=== PATIENT | female | born 1930 | race Caucasian/White ===

== ENCOUNTER → 2016-07-31 | Outpatient (CLI) | payer BC ==
[~2016-07-31] MED LIST: ACET-1256 PO; ASPCH81 PO; ATOR10TA88 PO; CHOL20007 PO; DVN/160 PO; FAMO20TA11 PO; IPRA0.032 NAE; MAGN400T6 PO; MCRK20 PO; PANT1TAB48 PO; SERT1TAB88 PO
[2016-07-31 14:34] LABS: BASO % 0.2 %; BASO ABS # 0.01 K/uL (0-0.2); COMPLETE YES; EOS % 1.4 %; IG% 0.2 %; LYMPH % 31.5 %; LYMPH ABS # 2.06 K/uL (1.2-3.4); MEAN CELL VOLUME 87.1 fL (80-100); MEAN CORPUSCULAR HGB CONC 33.3 g/dl (32-36); MEAN PLATELET VOLUME 10.3 fL (7.4-10.4); MONO % 8.7 %; PLATELET COUNT 216 K/uL (130-400); RED BLOOD COUNT 4.59 M/uL (4.2-5.4); WHITE BLOOD COUNT 6.54 K/uL (4.8-10.8)
[2016-07-31 15:09] LABS: BLOOD UREA NITROGEN 16 mg/dl (7-18); BUN/CREATININE RATIO 29.8 (10-20); CALCIUM 9.1 mg/dl (8.5-10.1); CARBON DIOXIDE 28 mmol/L (21-32); CHLORIDE 105 mmol/L (98-107); CREATININE 0.52 mg/dl (0.60-1.20); GLUCOSE 85 mg/dl (70-99); POTASSIUM 4.1 mmol/L (3.5-5.1); SODIUM 142 mmol/L (136-145)
== END | disposition home or self-care (01) ==
LOC: C.LAB 13:24
PROVIDERS: ATTEND Internal Medicine Geriatric Medicine
DX: E53.8 Deficiency of other specified B group vitamins (principal); M81.0 Age-related osteoporosis without current pathological fracture; M19.90 Unspecified osteoarthritis, unspecified site; E78.5 Hyperlipidemia, unspecified; I10 Essential (primary) hypertension; E55.9 Vitamin D deficiency, unspecified; R70.0 Elevated erythrocyte sedimentation rate

== ENCOUNTER → 2016-09-26 | Outpatient (CLI) | payer BC ==
--- NOTE | 2016-09-26 15:04 | DIAGNOSTIC IMAGING REPORT ---
RIGHT HAND 3 VIEWS HISTORY: M25.549 Pain, hand joint pain, swelling 3rd MCP [id number] Right COMPARISON: None. FINDINGS: There is no fracture or dislocation. The bones are osteopenic. 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 Mild osteoarthritis at the DIP and PIP joints. Soft tissue swelling at the second and third MCP joints and fingers. No bony erosions. No radiopaque foreign bodies. IMPRESSION: Soft tissue swelling. No fracture or dislocation within the right hand. Electronically signed by: Lorenzo Hickman M.D. 09/26/2016 3:03 PM Dictated Date/Time: 09/26/2016 3:01 PM
== END | disposition home or self-care (01) ==
LOC: C.RADBC 13:43
PROVIDERS: ATTEND Internal Medicine Geriatric Medicine
DX: M25.541 Pain in joints of right hand (principal); M79.89 Other specified soft tissue disorders

== ENCOUNTER → 2017-01-10 | Outpatient (CLI) | payer BC ==
[~2017-01-10] MED LIST changes: +ATOR10TA82 PO; -ATOR10TA88 PO; -FAMO20TA11 PO
== END ==
LOC: C.RDSM 15:57
PROVIDERS: ATTEND Physical Medicine & Rehabilitation Sports Medicine
DX: M25.551 Pain in right hip (principal); M25.561 Pain in right knee

== ENCOUNTER → 2017-01-26 | Outpatient (CLI) | payer BC ==
[~2017-01-26] MED LIST changes: -ATOR10TA82 PO; +ATOR10TA88 PO
--- NOTE | 2017-01-26 12:24 | MAMMOGRAPHY REPORT ---
BILATERAL DIGITAL SCREENING MAMMOGRAM WITH CAD: 01/26/2017 CLINICAL HISTORY: Routine screening. Patient has no complaints. TECHNIQUE: Current study was also evaluated with a Computer Aided Detection (CAD) system. Bilateral CC and MLO views were obtained. COMPARISON: Comparison is made to exams dated: 01/25/2016 mammogram, 01/21/2015 mammogram, 01/20/2014 mamm ogram, 01/16/2012 mammogram, 01/13/2011 mammogram, and 01/12/2010 mammogram - [facility] er. BREAST COMPOSITION: There are scattered areas of fibroglandular density in both breasts. FINDINGS: No suspicious masses, calcifications, or areas of architectural distortion are noted in ei ther breast. There has been no significant interval change compared to prior exams. IMPRESSION: ACR BI-RADS CATEGORY 1: NEGATIVE There is no mammographic evidence of malignancy. A 1 year screening mammogram is recommended. The pa tient will receive written notification of the results. Approximately 10% of breast cancers are not detected with mammography. A negative mammographic report should not delay biopsy if a clinically suggestive mass is present. Muriel Paul M.D. /:01/26/2017 12:03:06 Ager Operator: Olga Lidia HERNANDEZ)(Rickey), [facility] letter sent: Normal 1/2 BI-RADS Code: ACR BI-RADS Category 1: Negative
== END | disposition home or self-care (01) ==
LOC: C.MAMM 09:59
PROVIDERS: ATTEND Internal Medicine Geriatric Medicine
DX: Z12.31 Encounter for screening mammogram for malignant neoplasm of breast (principal)

== ENCOUNTER → 2017-02-08 | Outpatient (CLI) | payer BC | END | disposition home or self-care (01) | LOC: C.MAMM 13:37 | PROVIDERS: ATTEND Physical Medicine & Rehabilitation Sports Medicine | DX: M81.0 Age-related osteoporosis without current pathological fracture (principal) ==

== ENCOUNTER → 2017-06-01 | Outpatient (CLI) | payer BC ==
[~2017-06-01] MED LIST changes: +ATOR10TA82 PO; -ATOR10TA88 PO
[2017-06-01 11:48] LABS: BASO % 0.1 %; BASO ABS # 0.01 K/uL (0-0.2); COMPLETE YES; EOS % 1.6 %; HEMATOCRIT 40.9 % (37-47); IG% 0.4 %; LYMPH % 21.8 %; LYMPH ABS # 1.75 K/uL (1.2-3.4); MEAN CELL VOLUME 88.9 fL (80-100); MEAN CORPUSCULAR HEMOGLOBIN 29.3 pg (25-34); MEAN PLATELET VOLUME 9.8 fL (7.4-10.4); MONO % 6.6 %; NEUT % 69.5 %; PLATELET COUNT 202 K/uL (130-400); WHITE BLOOD COUNT 8.03 K/uL (4.8-10.8)
[2017-06-01 12:14] LABS: ALT/SGPT 14 U/L (12-78); BLOOD UREA NITROGEN 18 mg/dl (7-18); BUN/CREATININE RATIO 29.2 (10-20); CALCIUM 9.2 mg/dl (8.5-10.1); CARBON DIOXIDE 28 mmol/L (21-32); CHLORIDE 105 mmol/L (98-107); CHOLESTEROL 182 mg/dl (0-200); CREATININE 0.62 mg/dl (0.60-1.20); GLUCOSE 108 mg/dl (70-99); POTASSIUM 3.7 mmol/L (3.5-5.1); SODIUM 139 mmol/L (136-145); TRIGLYCERIDES 186 mg/dl (0-150); VERY LOW DENSITY LIPOPROT CALC 37 mg/dl
[2017-06-01 12:25] LABS: ALB/GLOB RATIO 0.9 (0.9-2); ALKALINE PHOSPHATASE 78 U/L (45-117); AST/SGOT 9 U/L (15-37); CHOLESTEROL/HDL RATIO 2.8; HDL CHOLESTEROL 65 mg/dl; LDL CHOLESTEROL CALCULATED 80 mg/dl
== END | disposition home or self-care (01) ==
LOC: C.LAB 10:37
PROVIDERS: ATTEND Internal Medicine Geriatric Medicine
DX: M81.0 Age-related osteoporosis without current pathological fracture (principal); M19.90 Unspecified osteoarthritis, unspecified site; R70.0 Elevated erythrocyte sedimentation rate; E78.5 Hyperlipidemia, unspecified; I10 Essential (primary) hypertension

== ENCOUNTER → 2017-06-04 | Day surgery (SDC) | payer BC ==
[~2017-06-04] VITALS: Ht 162.6 cm; Wt 78.0 kg
[~2017-06-04] MED LIST changes: +ZOLEDRONIC ACID INJ 5 MG in EMPTY BAG 0 ML IV SCH
[2017-06-04 13:39] VITALS: BP 158/73; PULSE 92; TEMP 36.9; O2SAT 96; Ht 162.6 cm; Wt 78.0 kg
== END | disposition home or self-care (01) ==
LOC: C.MTU 13:26
PROVIDERS: ATTEND Internal Medicine Geriatric Medicine
DX: M81.0 Age-related osteoporosis without current pathological fracture (principal)

== ENCOUNTER → 2017-08-28 | Outpatient (CLI) | payer BC ==
[~2017-08-28] MED LIST changes: +ASPI81TA28 PO; -IPRA0.032 NAE; -MCRK20 PO; +PANT1TAB3 PO; -PANT1TAB48 PO; -SERT1TAB88 PO; +SERT50TA PO; +VALS320T PO; +VITAMIN B12 INJ; +ZOLE5INJ IV; -ZOLEDRONIC ACID INJ 5 MG in EMPTY BAG 0 ML IV SCH
--- NOTE | 2017-08-28 10:08 | DIAGNOSTIC IMAGING REPORT ---
ABDOMEN COMPLETE (US) CLINICAL HISTORY: 87 years-old Female presenting with R10.13 Abdominal pain, chronic, [id number]. TECHNIQUE: Real-time grayscale and limited color Doppler ultrasound imaging of the abdomen was performed. COMPARISON: CT from 05/26/2016. FINDINGS: Pancreas: Visualized portions of the pancreatic head and body normal. Liver: Normal echogenicity and echotexture. The liver measures 14.1 cm in maximal sagittal dimension. No sonographic evidence of hepatic mass. Main portal vein patent with normal directional flow. Biliary: No intrahepatic biliary ductal dilatation. Common bile duct measures up to 9 mm in diameter, likely due to a reservoir effect in the post cholecystectomy state. Gallbladder: Surgically absent. Spleen: Normal in echogenicity and size, measuring 8.8 cm in length. Kidneys: Parapelvic cysts noted bilaterally. Cortical thinning may be present. Right kidney measures 10.8 cm, and left kidney measures 10.4 cm. No hydronephrosis. Vasculature: Visualized portions of the IVC and abdominal aorta normal. Ascites: None. IMPRESSION: 1. No sonographic evidence of acute abdominal pathology. 2. Biliary ductal prominence likely a reservoir effect in the post cholecystectomy state. 3. Possible renal cortical atrophy. Correlate with creatinine and GFR. No hydronephrosis. Electronically signed by: Gallito Anguiano M.D. 08/28/2017 10:06 AM Dictated Date/Time: 08/28/2017 10:03 AM
== END | disposition home or self-care (01) ==
LOC: C.ULTR 09:03
PROVIDERS: ATTEND Internal Medicine Geriatric Medicine
DX: R10.13 Epigastric pain (principal); Z90.49 Acquired absence of other specified parts of digestive tract; R93.2 Abnormal findings on diagnostic imaging of liver and biliary tract; R93.429 Abnormal radiologic findings on diagnostic imaging of unspecified kidney

== ENCOUNTER → 2017-09-03 | Day surgery (SDC) | payer BC ==
[2017-08-31 08:14] VITALS: BMI 29.0
[~2017-09-03] VITALS: Ht 162.6 cm; Wt 77.3 kg
[~2017-09-03] MED LIST changes: -ASPCH81 PO; -DVN/160 PO; +LABETALOL HCL IV 5 MG/ML 20ML IV ONE; +LIDOCAINE HCL 2% 2 ML VIAL (20MG/ML) ONE; +PROPOFOL IV EMULSION 10 MG/ML 20 ML VIAL IV ONE; +SODIUM CHLORIDE 0.9% 500ML 500 ML IV ONE
[2017-09-03 10:30] VITALS: Ht 162.6 cm; Wt 77.3 kg
--- NOTE | 2017-09-03 10:38 | Endo History and Physical ---
History & Physical Date of Service: Sep 03, 2017. Chief Complaint: GERD, Abdominal pain Referring Physician: Lex Acevedo History of Present Illness 87 yo CF who presents for EGD secondary to GERD and Abdominal pain. Past Medical History Osteoporosis, Arthritis, Fractures, Reflux, High Cholesterol, Hypertension Past Surgical History Hx Cardiac Surgery: No Hx Internal Defibrillator: No Hx Pacemaker: No Hx Abdominal Surgery: Yes (GISSEL) Hx of Implantable Prosthesis: No Hx Post-Op Nausea and Vomiting: No Hx Cancer Surgery: No Hx Thoracic Surgery: No Hx Orthopedic: Yes (RT SHANNEN AND REVISION) Hx Urinary Tract Surgery: No Family History None Social History Smoking Status: Never Smoker Hx Substance Use: No Hx Alcohol Use: No Allergies Coded Allergies: No Known Allergies (Unverified , 09/03/17) Current Medications Reported Home Medications Medications Dose Route/Sig Max Daily Dose Days Date Category Reclast (Zoledronic Acid) 5 Mg/100 Ml Inj 1 Dose IV YEARLY 08/31/17 Reported [Vitamin B12] 1 Dose INJ MONTHLY 08/31/17 Reported Aspirin Ec (Aspirin) 81 Mg Tab 81 Mg PO QAM 08/31/17 Reported Zoloft (Sertraline HCl) 50 Mg Tab 50 Mg PO QAM 08/31/17 Reported Diovan (Valsartan) 320 Mg Tab 320 Mg PO QAM 08/31/17 Reported Vitamin D3 (Cholecalciferol) 2,000 Unit Tab 6,000 Inter.unit PO QAM 05/26/16 Reported Lipitor (Atorvastatin Calcium) 10 Mg Tab 10 Mg PO QAM 05/26/16 Reported Tylenol (Acetaminophen) 500 Mg Tab 1,000 Mg PO Q4 PRN 01/25/14 Reported Protonix (Pantoprazole) 40 Mg Tab 40 Mg PO QAM 07/21/12 Reported Mag-Ox (Magnesium Oxide) 400 Mg Tab 400 Mg PO QAM 12/30/10 Reported Vital Signs Weight (Kilograms): 77.27 Height (Feet): 5 Height (Inches): 4 Physical Exam General Appearance: WD/WN, no apparent distress Respiratory/Chest: Auscultation: breath sounds normal Cardiovascular: Heart Auscultation: RRR Abdomen: Bowel Sounds: normal Inspection & Palpation: soft, non-distended, no tenderness, guarding & rebound Assessment and Plan Assessment: 87 yo CF who presents for EGD secondary to GERD and Abdominal pain. Plan: Proceed with EGD.
--- NOTE | 2017-09-03 11:07 | GI REPORT ---
Procedure Date: 09/03/2017 10:30 AM Procedure: Upper GI endoscopy Indications: Epigastric abdominal pain, Gastro-esophageal reflux disease Medicines: Monitored Anesthesia Care Complications: No immediate complications. Estimated Blood Loss: Estimated blood loss: none. Procedure: Pre-Anesthesia Assessment: - Prior to the procedure, a History and Physical was performed, and patient medications and allergies were reviewed. The patient's tolerance of previous anesthesia was also reviewed. The risks and benefits of the procedure and the sedation options and risks were discussed with the patient. All questions were answered, and informed consent was obtained. Prior Anticoagulants: The patient has taken aspirin, last dose was 1 day prior to procedure. ASA Grade Assessment: II - A patient with mild systemic disease. After reviewing the risks and benefits, the patient was deemed in satisfactory condition to undergo the procedure. After obtaining informed consent, the endoscope was passed under direct vision. Throughout the procedure, the patient's blood pressure, pulse, and oxygen saturations were monitored continuously. The Scope was introduced through the mouth, and advanced to the second part of duodenum. The upper GI endoscopy was accomplished without difficulty. The patient tolerated the procedure well. Findings: A non-obstructing Schatzki ring (acquired) was found at the gastroesophageal junction. A TTS dilator was passed through the scope. Dilation with a 15-16.5-18 mm balloon dilator was performed to 18 mm. Biopsies were taken with a cold forceps for histology. A small hiatal hernia was present. The examined duodenum was normal. Impression: - Non-obstructing Schatzki ring. Dilated. Biopsied. - Small hiatal hernia. - Normal examined duodenum. Recommendation: - Resume previous diet. - Continue present medications. - Await pathology results. - Return to primary care physician as previously scheduled. Manolo Fernandez DO 09/03/2017 11:06:55 AM This report has been signed electronically. Note Initiated On: 09/03/2017 10:30 AM I attest to the content of the Intraoperative Record and orders documented therein, exceptions below
--- NOTE | 2017-09-03 11:08 | Discharge Instructions ---
Endoscopy Patient Instructions Date / Procedure(s) Performed Sep 03, 2017. EGD Allergy Information Coded Allergies: No Known Allergies (Unverified , 09/03/17) Discharge Date / Findings Sep 03, 2017. Schatzki's Ring s/p dilation and cold forceps disruption Hiatal hernia Medication Instructions Stopped Medication(s): none taken OK to resume all medications today as prescribed Reported Home Medications Medications Dose Route/Sig Max Daily Dose Days Date Category Reclast (Zoledronic Acid) 5 Mg/100 Ml Inj 1 Dose IV YEARLY 08/31/17 Reported [Vitamin B12] 1 Dose INJ MONTHLY 08/31/17 Reported Aspirin Ec (Aspirin) 81 Mg Tab 81 Mg PO QAM 08/31/17 Reported Zoloft (Sertraline HCl) 50 Mg Tab 50 Mg PO QAM 08/31/17 Reported Diovan (Valsartan) 320 Mg Tab 320 Mg PO QAM 08/31/17 Reported Vitamin D3 (Cholecalciferol) 2,000 Unit Tab 6,000 Inter.unit PO QAM 05/26/16 Reported Lipitor (Atorvastatin Calcium) 10 Mg Tab 10 Mg PO QAM 05/26/16 Reported Tylenol (Acetaminophen) 500 Mg Tab 1,000 Mg PO Q4 PRN 01/25/14 Reported Protonix (Pantoprazole) 40 Mg Tab 40 Mg PO QAM 07/21/12 Reported Mag-Ox (Magnesium Oxide) 400 Mg Tab 400 Mg PO QAM 12/30/10 Reported Provider Instructions Activity Restrictions - No exercising or heavy lifting for 24 hours. - Do not drink alcohol the day of the procedure. - Do not drive a car or operate machinery until the day after the procedure. - Do not make any important decisions or sign important papers in 24 hours after the procedure. Following Day: - Return to full activity which may include returning to work/school. Diet Start your diet with liquids and light foods (jello, soup, juice, toast). Then eat your usual diet if not nauseated. Treatment For Common After Affects For mild abdominal pain, bloating, or excessive gas: - Rest - Eat lightly - Lie on right side Follow-Up Information Follow-up with Dr. Lex Acevedo as scheduled Anesthesia Information What You Should Know You have had a procedure that required some medicine to reduce anxiety and discomfort. This treatment is called moderate sedation. After receiving the treatment, you may be sleepy, but you will be able to breathe on your own. The effects of the treatment may last for several hours. Follow these instructions along with Activity/Diet recommendations noted above: * Do NOT do anything where dizziness or clumsiness would be dangerous. * Rest quietly at home today, then you can be up and about tomorrow. * Have a responsible person stay with you the rest of today. * You may have had an I.V. today. If so, you may take the dressing off later today. Recommendations Call your doctor if: * Trouble breathing * Continuous vomiting for more than 24 hours * Temperature above 101 degrees * Severe abdominal pain or bloating * Pain not relieved by pain medicine ordered * There is increased drainage or redness from any incision * A large amount of rectal bleeding greater than 2-3 tablespoons. (If you had a polyp/s removed or have hemorrhoids, a small amount of blood - from the rectum is to be expected.) * You have any unanswered questions or concerns. IN THE EVENT OF A SERIOUS EMERGENCY, GO TO THE NEAREST EMERGENCY ROOM Your discharge instructions were prepared by provider Manolo Fernandez. Patient Instructions Signature Page Latasha Graf Patient (or Guardian) Signature/Date: I have read and understand the instructions given to me by my caregivers. Caregiver/RN/Doctor Signature/Date: The above-named patient and/or guardian has received patient instructions on this date. + Original Patient Signature Page (only) stays with chart. Please make copy for patient.
--- NOTE | 2017-09-03 11:25 | Anesthesiology Progress Note ---
Anesthesia Post Op Note Date & Time Sep 03, 2017 at 11:25 Vital Signs Pain Intensity: 0 Vital Signs Past 12 Hours Date Time Temp Pulse Resp B/P (MAP) Pulse Ox O2 Delivery O2 Flow Rate FiO2 09/03/17 11:20 82 16 122/61 (81) 95 Room Air 09/03/17 11:05 81 16 121/56 (77) 93 Room Air 09/03/17 10:37 37.1 102 16 161/84 (109) 96 Room Air Notes Mental Status: alert / awake / arousable, participated in evaluation Pt Amnestic to Procedure: Yes Nausea / Vomiting: adequately controlled Pain: adequately controlled Airway Patency, RR, SpO2: stable & adequate BP & HR: stable & adequate Hydration State: stable & adequate Anesthetic Complications: no major complications apparent
[2017-09-03 11:35] VITALS: BP 151/90; PULSE 84; O2SAT 96
== END | disposition home or self-care (01) ==
LOC: C.GI 10:09
PROVIDERS: ATTEND Internal Medicine
DX: R10.13 Epigastric pain (principal); K21.9 Gastro-esophageal reflux disease without esophagitis; K22.2 Esophageal obstruction; K44.9 Diaphragmatic hernia without obstruction or gangrene; K20.9 Esophagitis, unspecified; E78.00 Pure hypercholesterolemia, unspecified; F32.9 Major depressive disorder, single episode, unspecified; F41.9 Anxiety disorder, unspecified; Z90.49 Acquired absence of other specified parts of digestive tract; Z96.641 Presence of right artificial hip joint; Z79.82 Long term (current) use of aspirin; Z79.899 Other long term (current) drug therapy

== ENCOUNTER 2017-11-24 08:26 | Emergency (ER) | payer BC ==
[~2017-11-24] VITALS: Ht 162.6 cm; Wt 76.9 kg
[~2017-11-24 08:26] MED LIST changes: -LABETALOL HCL IV 5 MG/ML 20ML IV ONE; -LIDOCAINE HCL 2% 2 ML VIAL (20MG/ML) ONE; -PROPOFOL IV EMULSION 10 MG/ML 20 ML VIAL IV ONE; -SODIUM CHLORIDE 0.9% 500ML 500 ML IV ONE
[2017-11-24 08:51] VITALS: TEMP 36.8; Ht 162.6 cm; Wt 76.9 kg
[2017-11-24] MEDS ORDERED: OXYCODONE HCL IR 5 MG TAB (IMMEDIATE RELEASE) PO STA (08:59)
--- NOTE | 2017-11-24 09:02 | EMERGENCY ROOM VISIT NOTE ---
History Report prepared by Johnna: Andrew Lara Under the Supervision of: Dr. Aaron Cifuentes D.O. First contact with patient: 08:46 Chief Complaint: FALL Stated Complaint: FALL,RIBS AND COLLAR BONE PAIN History of Present Illness The patient is a 87 year old female who presents to the Emergency Room due to a fall that occurred 18 hours ago. Patient states that the fall occurred when her dog began running at her causing her to take a step back and fall down on her back. Patient states that she has pain in her ribs and her left clavicle. She denies hitting head or getting knocked out. She states that she took Tylenol 6 hours ago which relieved the symptoms. She states that she would like medication for pain. Patient denies allergies to any medications. She states that she was able to stand up after the fall. She denies pain in her hips, legs , arms, and shoulders. She denies abdominal pain. Pertinent past medical history includes shoulder surgery. Source of History: patient Onset: 18 hours ago Position: chest (Ribs), shoulder (Left clavicle) Modifying Factors (Relieving): tylenol Associated Symptoms: No abdominal pain Note: Denies pain in hips, arms, legs, and shoulders. Review of Systems See HPI for pertinent positives & negatives. A total of 10 systems reviewed and were otherwise negative. Past Medical & Surgical Medical Problems: (1) GERD (gastroesophageal reflux disease) (2) HTN (hypertension) (3) Hyperlipidemia Surgical Problems: (1) S/P cholecystectomy (2) Status post right hip replacement Family History FH: gallbladder disease Hypertension Social History Smoking Status: Never Smoker Drug Use: none Marital Status: Occupation Status: retired Current/Historical Medications Scheduled Aspirin (Aspirin Ec), 81 MG PO QAM Atorvastatin (Lipitor), 10 MG PO QAM Cholecalciferol (Vitamin D3), 6,000 INTER.UNIT PO QAM Cyanocobalamin (Cyanocobalamin), 1,000 MG INJ MONTHLY Magnesium Oxide (Mag-Ox), 400 MG PO QAM Pantoprazole (Protonix), 40 MG PO QAM Sertraline (Zoloft), 50 MG PO QAM Valsartan (Diovan), 320 MG PO QAM Zoledronic Acid (Reclast), 1 DOSE IV YEARLY Scheduled PRN Acetaminophen (Tylenol), 1,000 MG PO Q4 PRN for Pain Oxycodone Immediate Rel Tab (Roxicodone Ir), 1 TAB PO Q4H PRN for Severe Pain Allergies Coded Allergies: No Known Allergies (Unverified , 11/24/17) Physical Exam Vital Signs Date Time Temp Pulse Resp B/P (MAP) Pulse Ox O2 Delivery O2 Flow Rate FiO2 11/24/17 10:49 77 18 146/68 95 Room Air 11/24/17 08:51 36.8 89 18 168/76 93 Room Air Physical Exam GENERAL: Patient is awake, alert, and in no acute distress. Patient is uncomfortable and showing mildly anxious appearing EYES: The conjunctivae are clear. The pupils are round and reactive. EARS, NOSE, MOUTH AND THROAT: The nose is without any evidence of any deformity. Mucous membranes are moist tongue is midline NECK: The neck is nontender and supple. RESPIRATORY: Normal respiratory effort is noted there is no evidence of wheezing rhonchi or rales CARDIOVASCULAR: Regular rate and rhythm noted there no murmurs rubs or gallops normal S1 normal S2 GASTROINTESTINAL: The abdomen is soft. Bowel sounds are present in all quadrants. Abdomen is nontender BACK: Tenderness over right lateral rib cage. No crepitus appreciated. No midline tenderness appreciated. MUSCULOSKELETAL/EXTREMITIES: Tenderness over medial aspect of the left clavicle. There is no evidence of gross deformity full range of motion is noted in the hips and shoulders SKIN: Pedal edema bilaterally. There is no obvious evidence of any rash. There are no petechiae, pallor or cyanosis noted. NEUROLOGIC: Patient is awake alert and oriented x3. Medical Decision & Procedures ER Provider Diagnostic Interpretation: Radiology results as stated below per my review and radiologist interpretation: L CLAVICLE CLINICAL HISTORY: 87 years-old Female presenting with fall, left apical and right-sided rib pain. TECHNIQUE: Frontal and apical lordotic views of the left clavicle were obtained. COMPARISON: Chest x-ray from 05/26/2016. FINDINGS: Osteopenia suspected. The acromioclavicular and glenohumeral joints are grossly congruent. No acute fracture or malalignment. No advanced degenerative change. Atherosclerosis of the aortic arch. Left apex clear. IMPRESSION: 1. No acute osseous injury. 2. Osteopenia suspected. Electronically signed by: Gallito Anguiano M.D. 11/24/2017 9:53 AM R RIBS UNILATERAL WITH PA CHEST CLINICAL HISTORY: 87 years-old Female presenting with fall. TECHNIQUE: PA view of the chest as well as frontal and oblique views of the right ribs were obtained. COMPARISON: 05/26/2016. FINDINGS: Atherosclerosis of the aortic arch. Cardiac silhouette mildly enlarged. Heterogeneity of lung parenchyma without focal opacity. No large pleural effusion or pneumothorax. Osteopenia suspected. Multilevel degenerative changes of the spine. Cholecystectomy clips noted. Minimally displaced lateral right fourth and sixth rib fractures, age indeterminate. IMPRESSION: 1. Age indeterminate minimally displaced lateral right fourth and sixth rib fractures. Correlate for point tenderness. 2. No acute cardiopulmonary disease. 3. Mild cardiomegaly. Electronically signed by: Gallito Anguiano M.D. 11/24/2017 10:07 AM Medications Administered Medications (Trade) Dose Ordered Sig/Raghavendra Route Start Time Stop Time Status Last Admin Dose Admin Oxycodone HCl (Roxicodone Immediate Rel Tab) 5 mg NOW STAT PO 11/24/17 08:59 11/24/17 09:00 DC 11/24/17 09:07 5 MG ED Course 0856: The patient was evaluated in room B11. A complete history and physical examination were performed. 0859: Oxycodone HCl 5mg PO 0958: Upon reevaluation, the patient is resting comfortably. I discussed the results and treatment plan with her. She verbalized agreement of the treatment plan. She was discharged home. Medical Decision Prior records/ancillary studies reviewed. Triage Nursing notes reviewed. Additional history obtained from patient's family member. The patient's history was concerning for traumatic injury Differential diagnosis: Etiologies such as fracture, dislocation, intra-abdominal, pneumothorax, intrathoracic , intracranial, neurologic, as well as other traumatic pathologies were entertained. The patient is an 87-year-old female who presented to the emergency department after a fall. The patient fell a few days ago. She suffered an injury to her right chest wall as well as her left clavicle. The patient was found to have signs of rib fracture on plain x-ray. On physical exam she did not have abdominal pain. The patient was treated with pain medication in the emergency department. I discussed patient's radiographic studies with her. She states that she has had rib fractures in the past. The patient states that she would follow-up with her primary care physician. She was encouraged to continue all medications as prescribed and rest. She was also encouraged to use incentive spirometer as instructed. I also encouraged her to return the emergency department immediately if symptoms change worsen or the need arises. Medication Reconcilliation Current Medication List: was personally reviewed by me Blood Pressure Screening Patient's blood pressure: Elevated blood pressure Blood pressure disposition: Elevated BP felt to be situational Impression Primary Impression: Fall Additional Impressions: Fracture of rib of right side Contusion of left clavicle Scribe Attestation The scribe's documentation has been prepared under my direction and personally reviewed by me in its entirety. I confirm that the note above accurately reflects all work, treatment, procedures, and medical decision making performed by me. Departure Information Dispostion Home / Self-Care Prescriptions Oxycodone Immediate Rel Tab (ROXICODONE IR) 5 Mg Tab 1 TAB PO Q4H Y for Severe Pain, #15 TAB Prov: Aaron Cifuentes, DO 11/24/17 Referrals Lex Acevedo M.D. (PCP) Forms HOME CARE DOCUMENTATION FORM, IMPORTANT VISIT INFORMATION Patient Instructions ED Fx Rib, My [facility] Additional Instructions Continue using Motrin and Tylenol for pain. Continue all other medications as prescribed. Follow-up with your family doctor this week. Avoid any strenuous activity. Return to the emergency department immediately if symptoms change worsening the need arises. Problem Qualifiers Primary Impression: Fall Encounter type: initial encounter Qualified Codes: W19.XXXA - Unspecified fall, initial encounter Additional Impressions: Fracture of rib of right side Encounter type: initial encounter Rib fracture type: multiple ribs Fracture type: closed Qualified Codes: S22.41XA - Multiple fractures of ribs , right side, initial encounter for closed fracture Contusion of left clavicle Encounter type: initial encounter Qualified Codes: S40.012A - Contusion of left shoulder, initial encounter
[2017-11-24] MEDS ORDERED: CYNI1000 INJ (09:07)
--- NOTE | 2017-11-24 09:55 | DIAGNOSTIC IMAGING REPORT ---
L CLAVICLE CLINICAL HISTORY: 87 years-old Female presenting with fall, left apical and right-sided rib pain. TECHNIQUE: Frontal and apical lordotic views of the left clavicle were obtained. COMPARISON: Chest x-ray from 05/26/2016. FINDINGS: Osteopenia suspected. The acromioclavicular and glenohumeral joints are grossly congruent. No acute fracture or malalignment. No advanced degenerative change. Atherosclerosis of the aortic arch. Left apex clear. IMPRESSION: 1. No acute osseous injury. 2. Osteopenia suspected. Electronically signed by: Gallito Anguiano M.D. 11/24/2017 9:53 AM Dictated Date/Time: 11/24/2017 9:51 AM
--- NOTE | 2017-11-24 10:08 | DIAGNOSTIC IMAGING REPORT ---
R RIBS UNILATERAL WITH PA CHEST CLINICAL HISTORY: 87 years-old Female presenting with fall. TECHNIQUE: PA view of the chest as well as frontal and oblique views of the right ribs were obtained. COMPARISON: 05/26/2016. FINDINGS: Atherosclerosis of the aortic arch. Cardiac silhouette mildly enlarged. Heterogeneity of lung parenchyma without focal opacity. No large pleural effusion or pneumothorax. Osteopenia suspected. Multilevel degenerative changes of the spine. Cholecystectomy clips noted. Minimally displaced lateral right fourth and sixth rib fractures, age indeterminate. IMPRESSION: 1. Age indeterminate minimally displaced lateral right fourth and sixth rib fractures. Correlate for point tenderness. 2. No acute cardiopulmonary disease. 3. Mild cardiomegaly. Electronically signed by: Gallito Anguiano M.D. 11/24/2017 10:07 AM Dictated Date/Time: 11/24/2017 10:05 AM
[2017-11-24] MEDS ORDERED: OXYC1TAB3 PO (10:17)
[2017-11-24 10:49] VITALS: BP 146/68; PULSE 77; O2SAT 95
== END 2017-11-24 10:52 | disposition home or self-care (01) ==
LOC: C.EDB 08:27
DX: S22.41XA Multiple fractures of ribs, right side, initial encounter for closed fracture (principal); W01.0XXA Fall on same level from slipping, tripping and stumbling without subsequent striking against object, initial encounter; M25.512 Pain in left shoulder; I10 Essential (primary) hypertension; E78.5 Hyperlipidemia, unspecified; K21.9 Gastro-esophageal reflux disease without esophagitis; Z98.890 Other specified postprocedural states; Z79.899 Other long term (current) drug therapy; Z79.82 Long term (current) use of aspirin

== ENCOUNTER → 2017-11-30 | Outpatient (CLI) | payer BC ==
[~2017-11-30] MED LIST changes: +CYNI1000 INJ; +OXYC1TAB3 PO; -VITAMIN B12 INJ
--- NOTE | 2017-11-30 15:24 | DIAGNOSTIC IMAGING REPORT ---
CHEST 2 VIEWS ROUTINE HISTORY: 87 years-old Female R05 [id number] Closed fracture of multiple ribs of right side acute cough COMPARISON: Chest and rib radiographs 11/24/2017 TECHNIQUE: PA and lateral views of the chest FINDINGS: Cardiomediastinal and hilar silhouettes are within normal limits. Atherosclerosis of the aorta. Trace right pleural effusion. No pneumothorax. Linear subsegmental left basilar opacities suggest atelectasis or scarring. There is no overt pulmonary edema. Degenerative changes of the shoulders and spine. Cholecystectomy clips are noted. Previously described fractures of the lateral right fourth and sixth ribs better seen on comparison. There is mild healing callus formation about acute subacute appearing minimally displaced fracture of the lateral right seventh rib. IMPRESSION: 1. Trace right pleural effusion . 2. Healing subacute appearing minimally displaced fracture of the lateral right seventh rib. No pneumothorax. The above report was generated using voice recognition software. It may contain grammatical, syntax or spelling errors. Electronically signed by: Jerson Wilks M.D. 11/30/2017 3:22 PM Dictated Date/Time: 11/30/2017 3:19 PM
== END | disposition home or self-care (01) ==
LOC: C.RADBC 14:38
PROVIDERS: ATTEND Physician Assistant Medical
DX: R05 Cough (principal); S22.41XA Multiple fractures of ribs, right side, initial encounter for closed fracture; X58.XXXA Exposure to other specified factors, initial encounter